=== PATIENT | male | born 1995 | race Caucasian/White ===

== ENCOUNTER 2019-09-12 10:56 | Emergency (ER) | payer OTHER ==
[~2019-09-12] VITALS: Ht 177.8 cm; Wt 80.2 kg
[2019-09-12] MEDS ORDERED: PROPARACAINE OPHTH 0.5%, 15ML ONE (11:25)
[2019-09-12] MEDS ORDERED: FLUORESCEIN OPHTHALMIC 1 MG STRIP EACHEYE ONE (11:30)
[2019-09-12] MEDS ORDERED: PROPARACAINE OPHTH 0.5%, 15ML EACHEYE ONE (11:30)
--- NOTE | 2019-09-12 11:51 | NUR ---
REPORT TO ANA OSPINA.
--- NOTE | 2019-09-12 12:24 | NUR ---
LEFT SWELLING AND REDNESS WITH DISCHARGE FOR 11 DAYS WITH RIGHT EYE REDNESS SINCE THIS MORNING
--- NOTE | 2019-09-12 12:56 | NUR ---
Patient/Caregiver given discharge instructions and they have confirmed that they understand the instructions. Patient ambulatory with steady gait.
== END 2019-09-12 12:58 | disposition home or self-care (01) ==
LOC: ED 12:39
DX: H10.32 Unspecified acute conjunctivitis, left eye (principal)
CPT/HCPCS: 99283